=== PATIENT | female | born 1945 | race Caucasian/White ===

== ENCOUNTER → 2021-01-23 | Outpatient (CLI) | payer OTHER ==
--- NOTE | 2021-01-23 11:59 | CARDNUC ---
[place] [address] CARDIAC NUCLEAR IMAGING REPORT Name: HERVEBERTHA Bereket Room: [facility]#: [id number] Admission: 01/23/21 Attend Phys: Lyudmila Loera, Discharge: Date of : 45 Date of Service: 01/23/21 1159 Report #: [id number] THIS REPORT FOR: cc: Rico Pedro MD, Scott H. MD Liston, Michael J. MD [facility] ~ APPROVED REPORT Study performed: 01/23/2021 09:22:10 Exam: Nuclear Stress Test Indication: Chest pain/pressure, Fatigue, Palpitations, Dyspnea. Patient Location: Out-Patient Stress Tech: Abimbola Contreras Stress Nurse: Paulina Velasquez Tech:HERLINDA Fountain Ht: 5 ft 3 in Wt: 186 lbs BSA: 1.88 m2 BMI: 32.94 Medical History Medical History: Chest pain/pressure/ache, PAFIB, fatigue, PND, palpitations, mitral valve and aortic valve insufficiency, tricuspid and pulmonic regurgitation, dizziness, lightheadedness, HTN, HLD, obesity, slow/shuffled gait, CHF. Medications: Eliquis, Atorvastatin, Lasix, Metoprolol, Propafenone, Fish Oils [place] 3's. Allergies: Sulfa ABX Cardiac Risk Factors: Age, HTN, Hyperlipidemia, SOB, PAFIB, PND, mitral/aortic valve insufficiency, tricuspid/pulmonic regurgitation, CHF, obesity. Previous Cardiac Procedures: None Pretest Chest Pain Characteristics: None Exercise History: Indeterminate Physical Disabilities: Fatigue, PAFIB, slow/shuffled gait. Meds Held (24 hrs): metoprolol. Stress Test Details Stress Test: Pharmacologic stress testing performed using 0.4 mg of regadenoson per 5 mL given IV over 10 seconds. Reason for pharmacologic stress test: Fatigue, PAFIB, slow/shuffled [place] [address] CARDIAC NUCLEAR IMAGING REPORT Name: BERTHA EDGAR Bereket Room: [facility]#: [id number] Admission: 01/23/21 Attend Phys: Lyudmila Loera, Discharge: Date of : 45 Date of Service: 01/23/21 1159 Report #: [id number] Resting HR: 56 bpm Max Heart Rate (APMHR): 144 bpm Max HR Achieved: 100 bpm Target HR (85% APMHR): 122 bpm % of APMHR: 69 Recovery HR: 75 bpm BP Resting BP: 140/73 mmHg Max BP: 135/99 mmHg ECG Resting ECG: Sinus Rhythm Stress ECG: Sinus Rhythm ST Change: None Arrhythmia: None Recovery ECG: Sinus Rhythm Recovery ST Change: None Recovery Arrhythmia: None Clinical Reason for Termination: Completed protocol Stress Symptoms: Dyspnea, head fullness/heaviness. Exercise duration: 00 min 00 sec Exercise capacity: 1.00 METs Patient tolerated Lexiscan infusion without cardiac symptoms. Nurse Comments A 75 year old female presented for a sitting Lexiscan. Test well tolerated. Recovery unremarkable. Patient was stable and stated she felt good when escorted to Nuclear Medicine for imaging. Stress ECG Conclusion The baseline twelve-lead EKG shows sinus rhythm without significant ST segment or T wave abnormality. EKGs obtained during and post Lexiscan infusion show sinus rhythm with no significant ST segment or T wave changes when compared to baseline. There were no stress-induced arrhythmias. NM EXAM: Myocardial Perfusion REST/STRESS Imaging Protocol: Rest Tc-99m/Stress Tc-99m 1 day Resting Data Rest SPECT myocardial perfusion imaging was performed in supine position 30 minutes following the intravenous injection of 10.6 mCi of Tc-99m Sestamibi. Time of rest injection: 744 Date: 01/23/2021 The images were gated to evaluate regional wall motion [place] [address] CARDIAC NUCLEAR IMAGING REPORT Name: BERTHA EDGAR Room: [facility]#: [id number] Admission: 01/23/21 Attend Phys: Lyudmila Loera, Discharge: Date of : 45 Date of Service: 01/23/21 1159 Report #: [id number] left ventricular ejection fraction. Administration Route: IV Administration Site: Left AC Pharmacologic Stress Pharmacologic stress test was performed by injecting Regadenoson 0.4 mg IV push followed by the intravenous injection of 36.0 mCi of Tc-99m Sestamibi. Time of stress injection: 934 Date: 01/23/2021 Administration Route: IV Administration Site: Left AC Gated Stress SPECT was performed 40 minutes after stress injection. The images were gated to evaluate regional wall motion and calculate left ventricular ejection fraction. Prone imaging was performed. Study Quality Study: Good Artifact: No artifact Study Data At rest, the left ventricular ejection fraction was 80%.. Post stress, the left ventricular ejection was 76%.. TID = 1.05. Perfusion Perfusion images obtained at rest and post Lexiscan stress show uniform uptake of the radioisotope throughout the myocardium. There were no defects to suggest infarct or ischemia. Wall Motion Normal left ventricular wall motion. Nuclear Conclusion ECG Findings: negative for ischemia Clinical Findings: negative for ischemia Nuclear Findings: negative for ischemia Exercise Capacity: not assessed Left Ventricular Function: normal Risk Study: low Myocardial perfusion images show no defect to suggest infarct or ischemia. Left ventricular systolic function appears normal on gated studies. This is a low risk study. <Conclusion> [place] [address] CARDIAC NUCLEAR IMAGING REPORT Name: BERTHA EDGAR Room: [facility]#: [id number] Admission: 01/23/21 Attend Phys: Lyudmila Loera, Discharge: Date of : 45 Date of Service: 01/23/21 1159 Report #: [id number] The baseline twelve-lead EKG shows sinus rhythm without significant ST segment or T wave abnormality. EKGs obtained during and post Lexiscan infusion show sinus rhythm with no significant ST segment or T wave changes when compared to baseline. There were no stress-induced arrhythmias. <ELECTRONICALLY SIGNED> By: Adi Salamanca MD, FACC 01/23/21 1159 1159 1159 Adi Salamanca MD, FACC /INF
== END ==
LOC: M.NUC 01-09 11:22
PROVIDERS: ATTEND Internal Medicine
DX: I11.0 Hypertensive heart disease with heart failure (principal); I50.32 Chronic diastolic (congestive) heart failure; I48.0 Paroxysmal atrial fibrillation; R53.83 Other fatigue; E78.2 Mixed hyperlipidemia; I08.0 Rheumatic disorders of both mitral and aortic valves